=== PATIENT | male | born 1935 | race Caucasian/White ===

== ENCOUNTER 2018-08-18 16:40 | Inpatient (IN) ==
[2018-08-18] MEDS ORDERED: MAGNESIUM SULF RIDER 2 GM in PREMIX 1 EACH IV PRN (17:25)
[2018-08-18] MEDS ORDERED: ZALEPLON 5 MG CAPSULE PO PRN (17:25)
[2018-08-18] MEDS ORDERED: DOCUSATE SODIUM 100 MG CAPSULE PO PRN (17:25)
[2018-08-18] MEDS ORDERED: ONDANSETRON 4 MG/2 ML VIAL IV PRN (17:25)
[2018-08-18] MEDS ORDERED: MAGNESIUM SULF RIDER 4 GM in PREMIX 1 EACH IV PRN (17:25)
[2018-08-18] MEDS ORDERED: MORPHINE 4 MG/1 ML VIAL IV PRN (17:25)
[2018-08-18 17:26] LABS: Basophils % 0.4 % (0.0-0.8); Eosinophils # 0.1 10*3/uL (0.0-0.87); Eosinophils % 1.8 % (0.00-10.9); Hematocrit 35.9 VOL% (42.0-52.0); Hemoglobin 11.6 GM/DL (14.0-18.0); Immature Granulocytes % 0.4 %; Immature Granulocytes Absolute 0.02 #; Lymphocytes # 0.9 10*3/uL (1.4-4.0); Lymphocytes % 16.6 % (21.2-54.2); Mean Corpuscular HGB Conc 32.3 GM/DL (32-36); Mean Corpuscular Hemoglobin 32 PG (27-34); Mean Corpuscular Volume 98.4 FL (87-102); Mean Platelet Volume 11.3 FL (9.6-12.0); Monocytes # 0.5 10*3/uL (0.11-0.8); Monocytes % 8.8 % (1.7-12.7); Platelet Count 119 T/CUMM (130-400); Red Blood Count 3.65 MC/CUMM (3.8-5.5); Red Cell Distribution Width 12.8 % (9.3-17.3); White Blood Count 5.5 T/CUMM (4-12)
[2018-08-18] MEDS ORDERED: diphenhydrAMINE CAP 25 MG CAPSULE PO STA (17:31)
[2018-08-18] MEDS ORDERED: diphenhydrAMINE CAP 25 MG CAPSULE PO PRN (17:31)
[2018-08-18] MEDS ORDERED: DIAZEPAM 5 MG TABLET PO STA (17:31)
[2018-08-18 17:36] LABS: Albumin 3.4 G/DL (3.4-5.0); Bilirubin,Total 0.4 MG/DL (0.2-1.0); Osmolality,Calculated 282.3 MOS/KG (273-304); Potassium 4.4 MMOL/L (3.5-5.1); Total Protein 6.8 G/DL (6.4-8.3)
[2018-08-18] MEDS ORDERED: POLYVINYL ALCOHOL 1.4% OPH SOLN 15 ML BOTTLE BOTH EYES PRN (17:55)
[2018-08-18] MEDS ORDERED: LIDOCAINE 1% 20 ML VIAL ONE (17:56)
[2018-08-18] MEDS ORDERED: fentaNYL 100 MCG/2 ML VIAL ONE (17:57)
[2018-08-18] MEDS ORDERED: MIDAZOLAM 2 MG/2 ML VIAL ONE (17:57)
[2018-08-18] MEDS ORDERED: ALTEPLASE 12 MG in SODIUM CHLORIDE 0.9% 240 ML IV SCH (18:00)
[2018-08-18] MEDS ORDERED: HEPARIN DRIP 25,000 UNITS/500 ML PREMIX IV SCH ×2 (19:00)
[2018-08-18] MEDS ORDERED: SODIUM CHLORIDE 0.9% 1,000 ML IV SCH ×3 (19:00)
[2018-08-18 19:08] LABS: INR 1.2; PT Patient Result 13.1 SECS; Partial Thromboplastin Time 28.5 SECS (0-40)
[2018-08-18 20:09] LABS: INR 1.2; PT Patient Result 13.2 SECS
[2018-08-18] MEDS: traZODone 50 MG TABLET PO SCH (20:24)
[2018-08-18] MEDS: risperiDONE 1 MG TABLET PO SCH (20:24)
[2018-08-18] MEDS: ZIPRASIDONE 20 MG/1 ML VIAL IM PRN (20:59)
[2018-08-18] MEDS: CEFDINIR 300 MG CAPSULE PO SCH (21:12)
[2018-08-18] MEDS: FLUTICASONE 50 MCG NASAL SPRAY 16 GM BOTTLE BOTH NARES SCH (21:12)
[2018-08-18] MEDS ORDERED: LORazepam 2 MG/1 ML VIAL IV PRN (21:26)
[2018-08-18] MEDS: OSELTAMIVIR 75 MG CAPSULE PO SCH (22:11)
[2018-08-18] MEDS: NITROGLYCERIN 2% OINT 1 INCH/GM PACK TOP SCH (23:30)
[2018-08-19] MEDS ORDERED: NITROGLYCERIN 2% OINT 1 INCH/GM PACK TOP SCH
[2018-08-19 06:04] LABS: Basophils % 0.7 % (0.0-0.8); Eosinophils # 0.3 10*3/uL (0.0-0.87); Eosinophils % 6.1 % (0.00-10.9); Hematocrit 31.7 VOL% (42.0-52.0); Hemoglobin 10.3 GM/DL (14.0-18.0); Immature Granulocytes % 0.2 %; Immature Granulocytes Absolute 0.01 #; Lymphocytes # 0.9 10*3/uL (1.4-4.0); Lymphocytes % 22.4 % (21.2-54.2); Mean Corpuscular HGB Conc 32.5 GM/DL (32-36); Mean Corpuscular Hemoglobin 32 PG (27-34); Mean Corpuscular Volume 99.1 FL (87-102); Mean Platelet Volume 11.1 FL (9.6-12.0); Monocytes # 0.4 10*3/uL (0.11-0.8); Neutrophils # 2.5 10*3/uL (1.4-7.4); Neutrophils % 60.6 % (38.7-73.9); Platelet Count 100 T/CUMM (130-400); Red Cell Distribution Width 12.9 % (9.3-17.3); White Blood Count 4.1 T/CUMM (4-12)
[2018-08-19 06:09] LABS: INR 1.2; PT Patient Result 12.9 SECS
[2018-08-19 06:41] LABS: Albumin 2.7 G/DL (3.4-5.0); Bilirubin,Total 0.6 MG/DL (0.2-1.0); Osmolality,Calculated 282.1 MOS/KG (273-304); Risk Ratio 4.36; Thyroid Stimulating Hormone 2.79 uIU/ml (0.358-3.74); Total Protein 5.6 G/DL (6.4-8.3)
[2018-08-19 06:43] LABS: Hypochromasia Slight; Macrocytosis Slight; Platelet Estimate Decreased
[2018-08-19] MEDS: NITROGLYCERIN 2% OINT 1 INCH/GM PACK TOP SCH (07:06)
[2018-08-19 07:41] LABS: Partial Thromboplastin Time 39.6 SECS (0-40)
[2018-08-19] MEDS: POLYETHYLENE GLYCOL POWDER 17 GM PACK PO SCH (09:25)
[2018-08-19] MEDS: LACTULOSE 20 GM/30 ML UDCUP PO SCH (09:25)
[2018-08-19] MEDS: CEFDINIR 300 MG CAPSULE PO SCH (10:01)
[2018-08-19] MEDS: PANTOPRAZOLE 40 MG TABLET PO SCH (10:01)
[2018-08-19] MEDS: risperiDONE 1 MG TABLET PO SCH ×2 (10:01→22:14)
[2018-08-19] MEDS: ALUMINUM/MAGNES/SIMETH MAX STR 30 ML UDCUP PO SCH (10:01)
[2018-08-19] MEDS: OSELTAMIVIR 75 MG CAPSULE PO SCH (10:01)
[2018-08-19] MEDS: APIXABAN 5 MG TABLET PO SCH ×2 (11:05→22:13)
[2018-08-19] MEDS: METOPROLOL TARTRATE 25 MG TABLET PO SCH (12:11)
[2018-08-19] MEDS: ZIPRASIDONE 20 MG/1 ML VIAL IM PRN (13:58)
[2018-08-19 19:01] LABS: Apearance,Urine CLEAR (Clear); Bacteria,Urine Occasional /HPF (Few); Bilirubin,Urine Negative (Negative); Blood, Urine Moderate mg/dL (Negative); Glucose,Urine (UA) Negative (Negative); Ketones,Urine 5 mg/dL (Negative); Mucus,Urine Occasional /LPF (Occasional); Nitrite,Urine Negative (Negative); Protein,Urine Negative; RBC,Urine 3 /HPF (0-4); Squamous Epithelial Cell,Urine Occasional /HPF (0-10); Urine Color Yellow (Yellow); Urine Specific Gravity 1.018 (1.001-1.035); Urine Urobilinogen < 2.0 EU/DL (0.2-1.0); WBC,Urine 3 /HPF (0-6)
[2018-08-19 19:42] LABS: Partial Thromboplastin Time 27.5 SECS (0-40)
[2018-08-19] MEDS: FLUTICASONE 50 MCG NASAL SPRAY 16 GM BOTTLE BOTH NARES SCH (22:13)
[2018-08-19] MEDS: traZODone 50 MG TABLET PO SCH (22:13)
[2018-08-20] MEDS: CEFDINIR 300 MG CAPSULE PO SCH ×3 (01:08→23:23)
[2018-08-20] MEDS: OSELTAMIVIR 75 MG CAPSULE PO SCH ×2 (01:08→09:59)
[2018-08-20] MEDS: METOPROLOL TARTRATE 25 MG TABLET PO SCH ×3 (01:08→23:23)
[2018-08-20 05:01] LABS: Basophils % 0.4 % (0.0-0.8); Eosinophils # 0.2 10*3/uL (0.0-0.87); Hematocrit 30.8 VOL% (42.0-52.0); Immature Granulocytes % 0.2 %; Immature Granulocytes Absolute 0.01 #; Lymphocytes # 0.7 10*3/uL (1.4-4.0); Lymphocytes % 15.7 % (21.2-54.2); Mean Corpuscular HGB Conc 32.5 GM/DL (32-36); Mean Corpuscular Hemoglobin 32 PG (27-34); Mean Corpuscular Volume 98.7 FL (87-102); Mean Platelet Volume 11.1 FL (9.6-12.0); Monocytes # 0.5 10*3/uL (0.11-0.8); Neutrophils # 3.2 10*3/uL (1.4-7.4); Neutrophils % 68.7 % (38.7-73.9); Platelet Count 108 T/CUMM (130-400); Red Blood Count 3.12 MC/CUMM (3.8-5.5); Red Cell Distribution Width 12.5 % (9.3-17.3); White Blood Count 4.6 T/CUMM (4-12)
[2018-08-20 05:32] LABS: Calcium 8.4 MG/DL (8.5-10.1); Osmolality,Calculated 276.4 MOS/KG (273-304); Potassium 4.2 MMOL/L (3.5-5.1)
[2018-08-20 07:35] LABS: Partial Thromboplastin Time 26.8 SECS (0-40)
[2018-08-20] MEDS: POLYETHYLENE GLYCOL POWDER 17 GM PACK PO SCH (09:17)
[2018-08-20] MEDS: LACTULOSE 20 GM/30 ML UDCUP PO SCH (09:17)
[2018-08-20] MEDS: APIXABAN 5 MG TABLET PO SCH ×2 (09:59→23:23)
[2018-08-20] MEDS: risperiDONE 1 MG TABLET PO SCH ×2 (09:59→23:23)
[2018-08-20] MEDS: PANTOPRAZOLE 40 MG TABLET PO SCH (10:00)
[2018-08-20] MEDS: ALUMINUM/MAGNES/SIMETH MAX STR 30 ML UDCUP PO SCH (10:07)
[2018-08-20] MEDS ORDERED: SERTRALINE 25 MG TABLET PO ONE (12:59)
[2018-08-20] MEDS: traZODone 50 MG TABLET PO SCH (23:23)
[2018-08-20] MEDS: FLUTICASONE 50 MCG NASAL SPRAY 16 GM BOTTLE BOTH NARES SCH (23:23)
[2018-08-20] MEDS: SERTRALINE 25 MG TABLET PO SCH (23:24)
[2018-08-21 05:43] LABS: Basophils % 0.6 % (0.0-0.8); Eosinophils # 0.1 10*3/uL (0.0-0.87); Eosinophils % 2.6 % (0.00-10.9); Hematocrit 31.4 VOL% (42.0-52.0); Hemoglobin 10.3 GM/DL (14.0-18.0); Immature Granulocytes % 0.2 %; Immature Granulocytes Absolute 0.01 #; Lymphocytes # 0.9 10*3/uL (1.4-4.0); Lymphocytes % 16.5 % (21.2-54.2); Mean Corpuscular HGB Conc 32.8 GM/DL (32-36); Mean Corpuscular Hemoglobin 32 PG (27-34); Mean Platelet Volume 11.3 FL (9.6-12.0); Monocytes # 0.6 10*3/uL (0.11-0.8); Monocytes % 10.6 % (1.7-12.7); Neutrophils # 3.8 10*3/uL (1.4-7.4); Neutrophils % 69.5 % (38.7-73.9); Platelet Count 139 T/CUMM (130-400); Red Blood Count 3.27 MC/CUMM (3.8-5.5); Red Cell Distribution Width 12.3 % (9.3-17.3); White Blood Count 5.5 T/CUMM (4-12)
[2018-08-21 06:34] LABS: Albumin 2.8 G/DL (3.4-5.0); Bilirubin,Total 1.4 MG/DL (0.2-1.0); Calcium 8.5 MG/DL (8.5-10.1); Potassium 4.1 MMOL/L (3.5-5.1)
[2018-08-21] MEDS: PANTOPRAZOLE 40 MG TABLET PO SCH (08:55)
[2018-08-21] MEDS: METOPROLOL TARTRATE 25 MG TABLET PO SCH ×2 (08:55→21:11)
[2018-08-21] MEDS: CEFDINIR 300 MG CAPSULE PO SCH ×2 (08:55→21:12)
[2018-08-21] MEDS: APIXABAN 5 MG TABLET PO SCH ×2 (08:55→21:11)
[2018-08-21] MEDS: LACTULOSE 20 GM/30 ML UDCUP PO SCH (09:09)
[2018-08-21] MEDS: ALUMINUM/MAGNES/SIMETH MAX STR 30 ML UDCUP PO SCH (09:10)
[2018-08-21] MEDS: POLYETHYLENE GLYCOL POWDER 17 GM PACK PO SCH (09:10)
[2018-08-21] MEDS: risperiDONE 1 MG TABLET PO SCH ×2 (09:11→21:11)
[2018-08-21] MEDS: SERTRALINE 25 MG TABLET PO SCH (21:11)
[2018-08-21] MEDS: ACETAMINOPHEN 325 MG TABLET PO PRN (21:12)
[2018-08-21] MEDS: FLUTICASONE 50 MCG NASAL SPRAY 16 GM BOTTLE BOTH NARES SCH (21:24)
[2018-08-22] MEDS: LACTULOSE 20 GM/30 ML UDCUP PO SCH (09:30)
[2018-08-22] MEDS: POLYETHYLENE GLYCOL POWDER 17 GM PACK PO SCH (09:30)
[2018-08-22] MEDS: ALUMINUM/MAGNES/SIMETH MAX STR 30 ML UDCUP PO SCH (09:31)
[2018-08-22] MEDS: METOPROLOL TARTRATE 25 MG TABLET PO SCH ×2 (09:31→21:46)
[2018-08-22] MEDS: APIXABAN 5 MG TABLET PO SCH (09:31)
[2018-08-22] MEDS: risperiDONE 1 MG TABLET PO SCH ×2 (09:31→21:46)
[2018-08-22] MEDS: CEFDINIR 300 MG CAPSULE PO SCH (09:31)
[2018-08-22] MEDS: PANTOPRAZOLE 40 MG TABLET PO SCH (09:31)
[2018-08-22] MEDS: SERTRALINE 25 MG TABLET PO SCH (21:46)
[2018-08-22] MEDS: FLUTICASONE 50 MCG NASAL SPRAY 16 GM BOTTLE BOTH NARES SCH (21:47)
[2018-08-23 06:17] LABS: Basophils % 0.4 % (0.0-0.8); Eosinophils # 0.2 10*3/uL (0.0-0.87); Eosinophils % 3.9 % (0.00-10.9); Hematocrit 33.2 VOL% (42.0-52.0); Hemoglobin 11.2 GM/DL (14.0-18.0); Immature Granulocytes % 0.4 %; Immature Granulocytes Absolute 0.02 #; Lymphocytes # 0.9 10*3/uL (1.4-4.0); Lymphocytes % 17.2 % (21.2-54.2); Mean Corpuscular HGB Conc 33.7 GM/DL (32-36); Mean Corpuscular Hemoglobin 32 PG (27-34); Mean Corpuscular Volume 95.4 FL (87-102); Mean Platelet Volume 10.7 FL (9.6-12.0); Monocytes # 0.6 10*3/uL (0.11-0.8); Monocytes % 11.8 % (1.7-12.7); Neutrophils # 3.4 10*3/uL (1.4-7.4); Neutrophils % 66.3 % (38.7-73.9); Platelet Count 183 T/CUMM (130-400); Red Blood Count 3.48 MC/CUMM (3.8-5.5); Red Cell Distribution Width 12.7 % (9.3-17.3); White Blood Count 5.2 T/CUMM (4-12)
[2018-08-23 06:43] LABS: Calcium 8.5 MG/DL (8.5-10.1); Osmolality,Calculated 268.2 MOS/KG (273-304); Potassium 4.1 MMOL/L (3.5-5.1)
[2018-08-23] MEDS: METOPROLOL TARTRATE 25 MG TABLET PO SCH ×2 (09:36→22:32)
[2018-08-23] MEDS: PANTOPRAZOLE 40 MG TABLET PO SCH (09:37)
[2018-08-23] MEDS: POLYETHYLENE GLYCOL POWDER 17 GM PACK PO SCH (09:37)
[2018-08-23] MEDS: ALUMINUM/MAGNES/SIMETH MAX STR 30 ML UDCUP PO SCH (09:37)
[2018-08-23] MEDS: LACTULOSE 20 GM/30 ML UDCUP PO SCH (09:37)
[2018-08-23] MEDS: risperiDONE 1 MG TABLET PO SCH ×2 (09:40→22:35)
[2018-08-23] MEDS: MANNITOL 20 GM in PREMIX 1 EACH IV SCH (17:55)
[2018-08-23] MEDS: SERTRALINE 25 MG TABLET PO SCH (22:32)
[2018-08-23] MEDS: FLUTICASONE 50 MCG NASAL SPRAY 16 GM BOTTLE BOTH NARES SCH (22:32)
[2018-08-24 04:46] LABS: Basophils % 0.5 % (0.0-0.8); Eosinophils # 0.2 10*3/uL (0.0-0.87); Eosinophils % 3.1 % (0.00-10.9); Hematocrit 34.6 VOL% (42.0-52.0); Hemoglobin 11.5 GM/DL (14.0-18.0); Immature Granulocytes % 0.5 %; Immature Granulocytes Absolute 0.03 #; Lymphocytes # 1.2 10*3/uL (1.4-4.0); Lymphocytes % 19.2 % (21.2-54.2); Mean Corpuscular HGB Conc 33.2 GM/DL (32-36); Mean Corpuscular Hemoglobin 32 PG (27-34); Mean Corpuscular Volume 96.1 FL (87-102); Mean Platelet Volume 11.2 FL (9.6-12.0); Monocytes # 0.7 10*3/uL (0.11-0.8); Monocytes % 11.3 % (1.7-12.7); Neutrophils % 65.4 % (38.7-73.9); Platelet Count 198 T/CUMM (130-400); Red Cell Distribution Width 12.9 % (9.3-17.3); White Blood Count 6.1 T/CUMM (4-12)
[2018-08-24 05:04] LABS: Calcium 8.7 MG/DL (8.5-10.1); Osmolality,Calculated 268.2 MOS/KG (273-304); Potassium 4.2 MMOL/L (3.5-5.1)
[2018-08-24] MEDS: risperiDONE 1 MG TABLET PO SCH ×2 (08:53→21:17)
[2018-08-24] MEDS: METOPROLOL TARTRATE 25 MG TABLET PO SCH ×2 (08:53→21:18)
[2018-08-24] MEDS: PANTOPRAZOLE 40 MG TABLET PO SCH (08:54)
[2018-08-24] MEDS: ALUMINUM/MAGNES/SIMETH MAX STR 30 ML UDCUP PO SCH (08:59)
[2018-08-24] MEDS: POLYETHYLENE GLYCOL POWDER 17 GM PACK PO SCH (08:59)
[2018-08-24] MEDS: LACTULOSE 20 GM/30 ML UDCUP PO SCH (08:59)
[2018-08-24] MEDS: MANNITOL 20 GM in PREMIX 1 EACH IV SCH ×2 (10:25→17:08)
[2018-08-24] MEDS ORDERED: TUBERCULIN SKIN TEST 0.1 ML SYRINGE INTRADERM ONE (13:22)
[2018-08-24] MEDS ORDERED: METOPROLOL TARTRATE 25 MG TABLET PO ONE (14:58)
[2018-08-24] MEDS: ACETAMINOPHEN 325 MG TABLET PO PRN (21:18)
[2018-08-24] MEDS: SERTRALINE 25 MG TABLET PO SCH (21:18)
[2018-08-24] MEDS: FLUTICASONE 50 MCG NASAL SPRAY 16 GM BOTTLE BOTH NARES SCH (21:22)
[2018-08-25 04:48] LABS: Basophils % 0.5 % (0.0-0.8); Eosinophils # 0.2 10*3/uL (0.0-0.87); Eosinophils % 3.5 % (0.00-10.9); Hematocrit 34.7 VOL% (42.0-52.0); Hemoglobin 11.5 GM/DL (14.0-18.0); Immature Granulocytes % 0.6 %; Immature Granulocytes Absolute 0.04 #; Lymphocytes # 1.1 10*3/uL (1.4-4.0); Lymphocytes % 17.7 % (21.2-54.2); Mean Corpuscular HGB Conc 33.1 GM/DL (32-36); Mean Corpuscular Hemoglobin 32 PG (27-34); Mean Corpuscular Volume 96.9 FL (87-102); Mean Platelet Volume 11.3 FL (9.6-12.0); Monocytes # 0.7 10*3/uL (0.11-0.8); Monocytes % 11.9 % (1.7-12.7); Neutrophils # 4.1 10*3/uL (1.4-7.4); Neutrophils % 65.8 % (38.7-73.9); Platelet Count 159 T/CUMM (130-400); Red Blood Count 3.58 MC/CUMM (3.8-5.5); Red Cell Distribution Width 12.8 % (9.3-17.3); White Blood Count 6.2 T/CUMM (4-12)
[2018-08-25 04:58] LABS: Calcium 8.8 MG/DL (8.5-10.1); Potassium 4.4 MMOL/L (3.5-5.1)
[2018-08-25] MEDS: ALUMINUM/MAGNES/SIMETH MAX STR 30 ML UDCUP PO SCH (09:15)
[2018-08-25] MEDS: risperiDONE 1 MG TABLET PO SCH ×2 (09:15→21:39)
[2018-08-25] MEDS: POLYETHYLENE GLYCOL POWDER 17 GM PACK PO SCH (09:15)
[2018-08-25] MEDS: PANTOPRAZOLE 40 MG TABLET PO SCH (09:15)
[2018-08-25] MEDS: METOPROLOL TARTRATE 25 MG TABLET PO SCH ×2 (09:15→21:38)
[2018-08-25] MEDS: LACTULOSE 20 GM/30 ML UDCUP PO SCH (17:38)
[2018-08-25] MEDS: MANNITOL 20 GM in PREMIX 1 EACH IV SCH (17:39)
[2018-08-25] MEDS: SERTRALINE 25 MG TABLET PO SCH (21:38)
[2018-08-25] MEDS: FLUTICASONE 50 MCG NASAL SPRAY 16 GM BOTTLE BOTH NARES SCH (21:44)
[2018-08-26] MEDS ORDERED: MANNITOL 20 GM in PREMIX 1 EACH IV SCH (09:00)
[2018-08-26] MEDS: PANTOPRAZOLE 40 MG TABLET PO SCH (09:42)
[2018-08-26] MEDS: risperiDONE 1 MG TABLET PO SCH (09:42)
[2018-08-26] MEDS: POLYETHYLENE GLYCOL POWDER 17 GM PACK PO SCH (09:42)
[2018-08-26] MEDS: ALUMINUM/MAGNES/SIMETH MAX STR 30 ML UDCUP PO SCH (09:42)
[2018-08-26] MEDS: LACTULOSE 20 GM/30 ML UDCUP PO SCH (09:42)
[2018-08-26] MEDS: METOPROLOL TARTRATE 25 MG TABLET PO SCH (09:42)
[2018-08-26 16:07] VITALS: BP 95/56
== END 2018-08-26 16:18 | DRG 175 ==
LOC: N.ED 16:40 → N.EDINP 17:25 → N.ICU 18:41 → N.TELES 08-19 12:11
PROVIDERS: ADMIT Internal Medicine Cardiovascular Disease; ATTEND Internal Medicine Cardiovascular Disease